=== PATIENT | female | born 1955 ===

== ENCOUNTER 2017-06-12 05:04 | Emergency (ER) | payer OTHER ==
[~2017-06-12] VITALS: Ht 165.1 cm; Wt 65.8 kg
[~2017-06-12 05:04] MED LIST: ATIVAN0.5 MG; BUSPAR5 MG PO; CATAFLAM50 MG PO; KLONOPIN0.5 MG/TAB PO; LEXAPRO5 MG; PRISTIC; TIAZAC180 MG
[2017-06-12] MEDS ORDERED: DIASTAT2.5 MG (05:11)
[2017-06-12] MEDS ORDERED: CARAFATE1 GM (05:11)
== END 2017-06-12 16:02 | disposition home or self-care (01) ==
LOC: ER 05:04
DX: K29.60 Other gastritis without bleeding (principal)